=== PATIENT | female | born 1990 | race Two or more races ===

== ENCOUNTER 2023-12-21 06:21 | Day surgery (SDC) | payer OTHER ==
[2023-12-19 12:38] LABS: HEMATOCRIT 36.5 % (36.0-45.00); HEMOGLOBIN 12.6 g/dL (12.0-15.00); MEAN CELL VOLUME 96.2 fL (80.00-100.00); MEAN CORPUSCULAR HEMOGLOBIN 33.2 pg (27.00-32.0); MEAN CORPUSCULAR HGB CONC 34.6 g/dl (32.0-36.0); PLATELET COUNT 227 K/uL (150-450); RED CELL DISTRIBUTION WIDTH 13.9 % (11.5-14.5)
[2023-12-19 13:00] LABS: INR 0.99; PROTHROMBIN TIME 10.8 SECONDS (9.0-11.5)
[2023-12-19 14:37] LABS: ALBUMIN 3.8 gm/dL (3.4-5.0); BILIRUBIN TOTAL 0.64 mg/dL (0.3-1.2); CALCIUM 9.2 mg/dL (8.5-10.1); CREATININE SERUM 0.54 mg/dL (0.55-1.02); GFR 129.23; POTASSIUM 4.44 mEq/L (3.5-5.1); TOTAL PROTEIN 7.8 gm/dL (6.4-8.2)
[2023-12-21] MEDS ORDERED: POVIDONE-IODINE 118 ML BOTT TOP ONE (13:30)
[2023-12-21] MEDS ORDERED: CEFAZOLIN SODIUM 1,000 MG VIAL IV ONE (13:30)
[2023-12-21] MEDS ORDERED: PROMETHAZINE HCL 50 MG/ML AMPUL IM ONE (14:00)
[2023-12-21] MEDS ORDERED: MORPHINE SULFATE 4 MG/ML VIAL IV PRN (14:00)
== END 2023-12-21 17:15 | disposition home or self-care (01) ==
LOC: CIR.AMB 06:21
PROVIDERS: ATTEND Obstetrics & Gynecology
DX: O02.1 Missed abortion (principal)

== ENCOUNTER 2024-03-31 12:45 | Emergency (ER) | payer OTHER ==
[~2024-03-31] VITALS: Ht 157.5 cm; Wt 49.9 kg
[2024-03-31] MEDS ORDERED: MEPERIDINE HCL/PF 50 MG/ML VIAL IM ONE (13:30)
[2024-03-31] MEDS ORDERED: FAMOtidine 10 MG/ML (4ML VIAL) IV PUSH ONE (13:30)
[2024-03-31] MEDS ORDERED: FAMOTIDINE/PF 20 MG/2 ML VIAL ONE (13:40)
[2024-03-31 13:58] LABS: HEMATOCRIT 38.4 % (36.0-45.00); HEMOGLOBIN 13.1 g/dL (12.0-15.00); MEAN CELL VOLUME 97.6 fL (80.00-100.00); MEAN CORPUSCULAR HEMOGLOBIN 33.3 pg (27.00-32.0); MEAN CORPUSCULAR HGB CONC 34.1 g/dl (32.0-36.0); PLATELET COUNT 209 K/uL (150-450); RED BLOOD COUNT 3.93 M/uL (4.00-6.00); RED CELL DISTRIBUTION WIDTH 13.8 % (11.5-14.5)
[2024-03-31] MEDS ORDERED: ZOFRAN8 MG PO (15:14)
[2024-03-31] MEDS ORDERED: PEPCID AC20 MG PO (15:14)
[2024-03-31] MEDS ORDERED: KETO10TA2 PO (15:14)
[2024-03-31 15:33] LABS: PH,URINE 5.5 (5.0-8.0); URINE APPEARANCE Clear; URINE BILIRRUBIN Negative (NEGATIVE); URINE BLOOD Negative; URINE COLOR Yellow; URINE GLUCOSE Negative (NEGATIVE); URINE KETONE Negative (NEGATIVE); URINE LEUKOCYTE Negative; URINE NITRATE Negative; URINE PROTEIN Negative (NEGATIVE); URINE UROBILINOGEN 0.2 E.U./dl
[2024-03-31 15:38] LABS: URINE BACTERIA 56.2 uL (0.0-1933); URINE EPITHELIAL CELLS 6.1 uL (0.0-38.8); URINE WBC 2.2 uL (0.0-23.2)
[2024-03-31 17:06] LABS: URINE RBC 1.6 uL (0.0-20.8)
== END 2024-03-31 16:05 | disposition home or self-care (01) ==
LOC: ER 12:47
PROVIDERS: General Practice
DX: R10.2 Pelvic and perineal pain (principal)